=== PATIENT | female | born 1960 | race Caucasian/White ===

== ENCOUNTER 2017-02-25 16:41 | Emergency (ER) | payer MEDICAID ==
--- NOTE | 2017-02-25 17:31 | ED Physician Chart ---
ED Chief Complaint/HPI - Patient Information Date Seen:: 02/25/17 Time Seen:: 17:20 Chief Complaint:: Fever History of Present Illness:: onset x 2 days of fever, E/As, cough, and congestion; pt denies H/As, S/T, neck pain, C/P, SOB, Abd. 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 [employer] Allergies:: Allergies Allergy/AdvReac Type Severity Reaction Status Date / Time codeine AdvReac Verified 02/25/17 17:19 Vitals:: Vital Signs - 8 hr 02/25/17 17:20 Temp 97 F HR 70 RR 16 BP 147/77 Historian:: Patient Review:: Nurse's Note Reviewed ED Review of Systems - Review of Systems General/Constitutional: Fever, No chills, No weight loss, No weakness, No diaphoresis, No edema, No loss of appetite Skin: No skin lesions, No rash, No bruising Head: No headache, No light-headedness Eyes: No loss of vision, No pain, No diplopia ENT: Earache, No nasal drainage, No sore throat, No tinnitus Neck: No neck pain, No swelling, No thyromegaly, No stiffness, No mass noted Cardio Vascular: No chest pain, No palpitations, No PND, No orthopnea, No edema Pulmonary: No SOB, Cough, No sputum, No wheezing GI: No nausea, No vomiting, No diarrhea, No pain, No melena, No hematochezia, No constipation, No hematemesis G/U: No dysuria, No frequency, No hematuria, No nacturia Bus Boy: No vaginal discharge, No abnormal vaginal bleed, No contraction Musculoskeletal: No bone or joint pain, No back pain, No muscle pain Endocrine: No polyuria, No polydipsia Psychiatric: No prior psych history, No depression, Anxiety, No suicidal ideation, No homicidal ideation, No auditory hallucination, No visual hallucination Hematopoietic: No bruising, No lymphadenopathy Allergic/Immuno: No urticaria, No angioedema Neurological: No syncope, No focal symptoms, No weakness, No paresthesia, No headache, No seizure, No dizziness, No confusion, No vertigo ED Past Medical History - Past Medical History Obtainable: Yes Past Medical History: HTN Family History: HTN Social History: Non Smoker, No Alcohol, No Drug Use, Surgical History: None Psychiatricy History: None Medication: Reviewed Family Medical History - Family Member Father Living Status: Other Medical History: ca ED Physical Exam - Physical Examination General/Constitutional: Awake, Well-developed, well-nourished, Alert, No distress, GCS 15, Non-toxic appearing, Ambulatory Head: Atraumatic Eyes: Lids, conjuctiva normal, PERRL, EOMI Skin: Nl inspection, No rash, No skin lesions, No ecchymosis, Well hydrated, No lymphadenopathy ENMT: External ears, nose nl, Nasal exam nl, Lips, teeth, gums nl, Oropharynx nl , Tonsils nl Other ENMT comments:: Ears: TMs: dull and injected; + nasal Congestion Neck: Nontender, Full ROM w/o pain, No JVD, No nuchal rigidity, No bruit, No mass, No stridor Other Neck comments:: Supple; no meningeal signs; no cervical tenderness; no bruits Respiratory: Nl effort/Exclusion, Clear to Auscultation, No Wheeze/Rhonchi/Rales Cardio Vascular: RRR, No murmur, gallop, rubs, NL S1 S2, Carotid/Femoral/Distal pulses equal bilaterally GI: No tenderness/rebounding/guarding, No organomegaly, No hernia, Normal BS's, Nondistended, No mass/bruits, No McBurney tenderness Other GI comments:: no pulsatile masses : No CVA tenderness Extremities: No tenderness or effusion, Full ROM, normal strength in all extremities, No edema, Normal digits & nails Neuro/Psych: Alert/oriented, DTR's symmetric, Normal sensory exam, Normal motor strength, Judgement/insight normal, Mood normal, Normal gait, No focal deficits Misc: Normal back, No paraspinal tenderness ED Septic Shock - . Is Septic Shock (SBP<90, OR Lactate>4 mmol\L) present?: No - <6hrs of presentation: Vital Signs: Vital Signs - 8 hr 02/25/17 17:20 Temp 97 F HR 70 RR 16 BP 147/77 ED Reassessment (Disposition) - Reassessment Reassessment:: pt tolerated po fluids well in ER; pt is asymptomatic upon discharge Reassessment Condition:: Improved - Diagnosis Diagnosis:: Cough; Congestion; Earaches; Fever; Otitis Media; Sinusitis; Bronchitis; URI - Aftercare/Follow up Instructions Aftercare/Follow-Up Instructions:: Counseled pt regarding lab results/diagnosis & need follow up, Refer to Discharge Instructions, Counseled pt & family regarding lab results/diagnosis & need follow up Medication Prescribed:: Rx: Amoxicillin 500mg po tid x 10 days; Tylenol 500mg po qid prn fever/pain; Cool Mist Vaporizer; take medications as prescribed; encourage fluids - Patient Disposition Discharge/Transfer:: Home Condition at Disposition:: Stable (RTER prn if existing s/s reoccur and/or get worse and/or any other new s/s occur; ACIs given for all above Dx; Refer to ENT Specialist/Mat Tester LOTUS; F/U with PMD in one day or prn; RTER prn if concerned ), Improved ED Discharge Plan - Patient Disposition Admit/Discharge/Transfer: PT DISCHARGED HOME Condition at Disposition: Stable Prescriptions: Amoxicillin [Amoxicillin*] 500 mg PO TID #30 tab Instructions: Upper Respiratory Infection, Adult, [id number]
== END 2017-02-25 17:43 | disposition home or self-care (01) ==
LOC: ER 16:41
DX: J40 Bronchitis, not specified as acute or chronic (principal); J06.9 Acute upper respiratory infection, unspecified; J32.9 Chronic sinusitis, unspecified; H66.93 Otitis media, unspecified, bilateral; I10 Essential (primary) hypertension
CPT/HCPCS: Z7502

== ENCOUNTER 2017-06-07 23:05 | Emergency (ER) | payer MEDICAID ==
--- NOTE | 2017-06-07 23:39 | ED Physician Chart ---
ED Chief Complaint/HPI - Patient Information Date Seen:: 06/07/17 Time Seen:: 23:30 Chief Complaint:: R big toe pain this evening. History of Present Illness:: Brought in by private auto because of R big toe pain since about 7 pm. Pt does not recall any known injury. No fever. Allergies:: Allergies Allergy/AdvReac Type Severity Reaction Status Date / Time codeine AdvReac Verified 06/07/17 23:26 Vitals:: Vital Signs - 8 hr 06/07/17 23:10 Temp 97.0 F HR 65 RR 18 BP 156/81 O2 Sat % 97 Historian:: Patient Family MD/PCP:: Dr. Simeon LMP:: Postmenopausal Review:: Nurse's Note Reviewed ED Review of Systems - Review of Systems General/Constitutional: No fever, No weakness, No edema, Loss of appetite Skin: No rash, No bruising Head: No headache, No light-headedness Eyes: No loss of vision, No pain ENT: No earache, No nasal drainage, No sore throat Neck: No neck pain, No stiffness Cardio Vascular: No chest pain, No edema Pulmonary: No SOB, No cough, No wheezing GI: No nausea, No vomiting, No diarrhea, No pain G/U: No dysuria, No frequency, No hematuria Debt Collector: No vaginal discharge, No abnormal vaginal bleed Musculoskeletal: Bone or joint pain (R big toe.) Endocrine: No polyuria, No polydipsia Psychiatric: No prior psych history Hematopoietic: No bruising, No lymphadenopathy Allergic/Immuno: No urticaria, No angioedema Neurological: No syncope, No focal symptoms, No weakness, No paresthesia, No headache, No dizziness, No confusion ED Past Medical History - Past Medical History Past Medical History: HTN, Dyslipidemia Family History: HTN (father.), Cancer (father) Social History: Smoker ( 1/3 ppd. Pt has been informed about health risks associated with chronic tobacco and has been advised to stop. Pt has been encouraged to enroll in a smoking cessation program. Pt acknowledges understanding.), Alcohol (occasional), No Drug Use, , Other (lives with her daughter.) Employment:: unemployed. Surgical History: None Psychiatricy History: None Medication: Reviewed Family Medical History - Family Member Father History Unknown: Yes Living Status: ED Physical Exam - Physical Examination General/Constitutional: Awake, Well-developed, well-nourished, Alert, No distress, GCS 15, Non-toxic appearing, Ambulatory Other Gen/Cons comments:: Breathes comfortably, speaks clearly, and ambulates without difficulty. Head: Atraumatic Eyes: Lids, conjuctiva normal, PERRL, EOMI Skin: Well hydrated, No lymphadenopathy ENMT: External ears, nose nl, Nasal exam nl, Oropharynx nl Neck: Nontender, Full ROM w/o pain, No nuchal rigidity, No mass, No stridor Respiratory: Nl effort/Exclusion, Clear to Auscultation, No Wheeze/Rhonchi/Rales Cardio Vascular: RRR, No murmur, gallop, rubs Other Extremities comments:: R big toe: FROM of all joints. Mild tenderness at mid medial planter aspect of distal phalanx but no open wound. No foreign body noticed. No edema, erythema, ecchymosis or swelling. No detectable motor/sensory/vascular deficit. Good distal capillary refill. Neuro/Psych: Alert/oriented (oriented x 3), No focal deficits ED Labs/Radiology/EKG Results - Radiology Results Results: R big toe X-ray: Based on my interpretation, small radiodensity noticed at mid medial planter aspect of distal phalanx, consider foreign body. Official report is pending. ED Septic Shock - . Is Septic Shock (SBP<90, OR Lactate>4 mmol\L) present?: No - <6hrs of presentation: Vital Signs: Vital Signs - 8 hr 06/07/17 23:10 Temp 97.0 F HR 65 RR 18 BP 156/81 O2 Sat % 97 ED Reassessment (Disposition) - Reassessment Reassessment:: 0104 Pt overall feels comfortable, ambulates without difficulty. R big toe X- ray just became available and has been reviewed with pt. Discussed with pt at length, pt prefers not to have right big toe exploration and attempt for foreign body removal done at this ER. She prefers to be evaluated by her pharmacy services representative with her health plan later today for consideration of foreign body removal. Pt requests to go home now. Aftercare instructions have been given. A copy of her R big toe is to be given to pt to bring to her pharmacy services representative later today for further evaluation. Reassessment Condition:: Improved - Diagnosis Diagnosis:: R big toe pain with probable foreign body. Stable. - Aftercare/Follow up Instructions Aftercare/Follow-Up Instructions:: Refer to Discharge Instructions Notes:: May take Tylenol 500 mg po q6h prn pain. Avoid pressure on R big toe. F/U with PCP Dr. Simeon later today as planned for Podiatry Clinic referral. Return to ER immediately if condition worsens or if any further questions/ problems. Medication Prescribed:: Bactrim DS one tab po q12h as directed. D-20 R-0 - Patient Disposition Discharge/Transfer:: Home Time:: 01:15 Condition at Disposition:: Stable, Improved ED Discharge Plan - Patient Disposition Instructions: Puncture Wound Additional Instructions: MAKE A FOLLOW UP WITH PRIMARY MEDICAL DOCTOR AND SEE A SALES COMMISSIONS ANALYST [facility]US, COMPLY WITH PRESCRIBED MEDICATION.
[2017-06-07] MEDS ORDERED: Acetaminophen 500 MG TAB PO ONE (23:45)
[2017-06-07] MEDS ORDERED: Acetaminophen 500 MG TAB ONE (23:48)
[2017-06-08] MEDS ORDERED: Sulfamethoxazole/TMP 800/160mg Tab PO ONE (01:09)
[2017-06-08] MEDS ORDERED: Sulfamethoxazole/TMP 800/160mg Tab ONE (01:10)
--- NOTE | 2017-06-08 08:00 | Diagnostic Imaging Report ---
Exam: Right great toe HISTORY: Pain. Findings: Multiple views of the right great toe reviewed the study demonstrates no evidence of fracture dislocation. A small 3 mm radiopaque density is noted overlying the ventral aspect of the distal soft tissues of the right great toe. The joint spaces are preserved. IMPRESSION: No evidence of fracture dislocation. 3 mm foreign body embedded in soft tissues of the distal right great toe.
== END 2017-06-08 01:20 | disposition home or self-care (01) ==
LOC: ER 23:05
DX: M79.674 Pain in right toe(s) (principal); I10 Essential (primary) hypertension; E78.5 Hyperlipidemia, unspecified; F17.200 Nicotine dependence, unspecified, uncomplicated; Z88.5 Allergy status to narcotic agent
CPT/HCPCS: 73660-TC-T5; Z7502; Z7610